=== PATIENT | female | born 1975 | race Caucasian/White ===

== ENCOUNTER 2023-07-21 06:51 | Emergency (ER) | payer OTHER ==
[2023-07-21 07:04] VITALS: BP 114/76; PULSE 86; RESP 16; TEMP 99.6; BMI 22.7
[2023-07-21] MEDS ORDERED: DEXAMETHASONE 4 MG TABLET (FP) PO ONE (07:31)
[2023-07-21] MEDS ORDERED: IBUPROFEN 600 MG TABLET (FP) PO ONE ×2 (07:31→07:34)
[2023-07-21] MEDS ORDERED: DEXAMETHASONE 4 MG TABLET (FP) ONE ×3 (07:34→07:36)
== END 2023-07-21 07:44 | disposition home or self-care (01) ==
LOC: FER 06:51
DX: U07.1 COVID-19 (principal); H66.003 Acute suppurative otitis media without spontaneous rupture of ear drum, bilateral; H92.02 Otalgia, left ear; R07.0 Pain in throat; M79.10 Myalgia, unspecified site
CPT/HCPCS: 99283-25

== ENCOUNTER 2025-01-29 05:50 | Day surgery (SDC) | payer OTHER ==
[2025-01-28 10:13] VITALS: BMI 21.1
[2025-01-29 08:06] VITALS: TEMP 97.6
[2025-01-29 08:35] VITALS: BP 100/59; PULSE 55; RESP 16
== END 2025-01-29 09:15 | disposition home or self-care (01) ==
LOC: JASU-ENDO 05:50
PROVIDERS: ATTEND Internal Medicine Gastroenterology
PROC: 0DBH8ZX Excision of Cecum, Via Natural or Artificial Opening Endoscopic, Diagnostic (ICD-10-PCS; principal; 2025-01-29 07:30)
DX: Z12.11 Encounter for screening for malignant neoplasm of colon (principal); D12.0 Benign neoplasm of cecum; Z80.0 Family history of malignant neoplasm of digestive organs
CPT/HCPCS: 81025; 88305-TC